=== PATIENT | male | born 1965 | race Caucasian/White ===

== ENCOUNTER 2017-09-16 08:30 | Day surgery (SDC) | payer BC ==
[~2017-09-16 08:30] MED LIST: Lactated Ringers 1,000 ML IV SCH
--- NOTE | 2017-09-16 10:01 | PCM.PREANE ---
Preanesthetic Assessment - Anesthesia/Transfusion/Family Hx Anesthesia History: Prior Anesthesia Without Reaction Family History of Anesthesia Reaction: No Transfusion History: No Prior Transfusion(s) Intubation History: Unknown - Review of Systems General: No Symptoms Pulmonary: No Symptoms Cardiovascular: No Symptoms Gastrointestinal: Hematochezia Neurological: No Symptoms Other: Reports: None - Physical Assessment NPO Status Date: 09/15/17 NPO Status Time: 23:30 O2 Sat by Pulse Oximetry: 96 Respiratory Rate: 16 Vital Signs: Last Vital Signs Temp 36.3 C 09/16/17 09:02 Pulse 78 09/16/17 09:02 Resp 16 09/16/17 09:02 BP 131/77 09/16/17 09:02 Pulse Ox 96 09/16/17 09:02 Height: 1.85 m Weight: 90.718 kg ASA Class: 2 Mental Status: Alert & Oriented x3 Airway Class: Mallampati = 2 Dentition: Reports: Normal Dentition Thyro-Mental Finger Breadths: 3 Mouth Opening Finger Breadths: 3 ROM/Head Extension: Full Lungs: Clear to Auscultation, Normal Respiratory Effort Cardiovascular: Regular Rate, Regular Rhythm - Allergies Allergies/Adverse Reactions: Allergies Allergy/AdvReac Type Severity Reaction Status Date / Time No Known Allergies Allergy Verified 09/11/17 12:13 - Blood Blood Available: No - Anesthesia Plan Pre-Op Medication Ordered: None - Acknowledgements Anesthesia Type Planned: MAC Pt an Appropriate Candidate for the Planned Anesthesia: Yes Alternatives and Risks of Anesthesia Discussed w Pt/Guardian: Yes Pt/Guardian Understands and Agrees with Anesthesia Plan: Yes PreAnesthesia Questionnaire HEENT History: Reports: Allergic Rhinitis Respiratory History: Reports: Asthma Other Respiratory History: exercised induced asthma- does not have inhaler Gastrointestinal History: Reports: Hemorrhoids Musculoskeletal History: Reports: Fracture Other Musculoskeletal History: hx of fx foot and finger- no hardware Neurological History: Reports: Concussion, Other (See Below) Other Neuro History: hx of motion sickness, h/o migraines - Past Surgical History HEENT Surgical History: Reports: Tonsillectomy Male Surgical History: Reports: Vasectomy - SUBSTANCE USE Smoking Status *Q: Never Smoker Recreational Drug Use History: No - HOME MEDS Home Medications: Home Meds . [No Known Home Meds] 09/11/17 [History] - CURRENT (IN HOUSE) MEDS Current Meds: Current Medications Lactated Ringer's (Ringers, Lactated) 1,000 mls @ 125 mls/hr IV ASDIRECTED ELLY Last Admin: 09/16/17 09:03 Dose: 125 mls/hr
--- NOTE | 2017-09-16 11:32 | PCM.OPNOTE ---
- General Post-Op/Procedure Note Date of Surgery/Procedure: 09/16/17 Operative Procedure(s): colonoscopy w bx Findings: see dict [id number] Pre Op Diagnosis: BRBPR Post-Op Diagnosis: Same Anesthesia Technique: Moderate Sedation Primary Surgeon: Efrain Maria Pathology: 2 mm sessile polyp in the cecum and at 15 cm when scope pulled out Complications: None Condition: Good
[2017-09-16] MEDS ORDERED: Propofol 200 MG/20 ML SDV ONE (11:48)
[2017-09-16] MEDS ORDERED: fentaNYL 100 MCG/2 ML SDV ONE (11:48)
[2017-09-16] MEDS ORDERED: Lidocaine 2% 5 ML SDV ONE (11:48)
[2017-09-16] MEDS ORDERED: Midazolam 1 MG/ML 2 ML SDV ONE (11:48)
--- NOTE | 2017-09-16 12:14 | PCM48HPAN ---
Post Anesthesia Note - EVALUATION WITHIN 48HRS OF ANESTHETIC Vital Signs in Normal Range: Yes Patient Participated in Evaluation: Yes Respiratory Function Stable: Yes Airway Patent: Yes Cardiovascular Function Stable: Yes Hydration Status Stable: Yes Pain Control Satisfactory: Yes Nausea and Vomiting Control Satisfactory: Yes Mental Status Recovered: Yes Resp Rate: 12 - COMMENTS/OBSERVATIONS Free Text/Narrative:: no anesthesia problems
--- NOTE | 2017-09-17 10:31 | OR ---
SURGEON: Efrain Maria MD DATE OF PROCEDURE: 09/16/2017 PREOPERATIVE DIAGNOSIS: Bright red blood per rectum. POSTOPERATIVE DIAGNOSIS: Colon polyp. PROCEDURE PERFORMED: Colonoscopy with biopsy. FINDINGS: 1. The patient is easily sedated with [employer] and Diprivan. The patient is soundly snoring. 2. The patient's colon was present. Bowel prep is left to be desirable, could be a little bit better and is average with large amount of liquid stool in particles, opaque, quite a lot of them, but they are not coating to the mucosa, so with a little bit of irrigation, that will be fine. 3. Cecum is rather straightforward. Cecum indicated by ileocecal fold, one-to- one indentation, light emittance, and appendiceal orifice was observed, and mucosa was then examined upon scope slowly pulling out. The patient does not have diverticulosis. The patient has one 2 mm sessile polyp in the cecum, was removed with biopsy forceps. Then the patient has 4-5 similar small polyps, very small, like 1 to 2 mm. Clinically insignificant at the rectum or close to the rectum area. One was biopsied and sent for pathology and other than that, no inflammation, stricture, ulceration, bleeding, AV malformation, mass or growth, other than the polyp mentioned. The patient would benefit from repeat colonoscopy 10 years from today or if the pathology of the polyp suggest otherwise or if clinically indicated otherwise. PROCEDURE IN DETAIL: The patient was taken to the endoscopy room. A time out was called, patient identified, and procedure identified. Diprivan was then administrated. Patient went from awake to sleep, hearing doctor talking or door closing is normal. Perineum inspection and digital examination were then performed. A well- lubricated colonoscope was gently inserted through the rectum, advanced past the rectosigmoid junction, the descending colon, splenic flexure, transverse colon, hepatic flexure, ascending colon, arrived to the cecum. Cecum was identified as dictated in the finding. Then the scope was carefully withdrawn while attention was paid to the mucosal surface for any abnormality. Air will be sucked out during the scope withdrawal. At the rectum, retroflexed to examine any rectal diseases, fistula or hemorrhoids. During mucosal examination, abnormality or polyp was noted; picture taken and biopsy performed. Patient tolerated procedure well. There were no intraoperative complications, and Dr. Maria was present throughtout the whole procedure. MOHINI / ALY /[id number]
== END 2017-09-16 12:15 | disposition home or self-care (01) ==
LOC: MW.SDS 08:30
PROVIDERS: ATTEND Surgery
DX: D12.0 Benign neoplasm of cecum (principal); K63.5 Polyp of colon; J45.909 Unspecified asthma, uncomplicated
CPT/HCPCS: 45380; J2250; J3010; J7120; 88305; J2704